=== PATIENT | female | born 2000 | race Caucasian/White ===

== ENCOUNTER 2020-02-02 08:54 | Day surgery (SDC) | payer BC ==
[2020-01-29 15:57] VITALS: BMI 23.9
[2020-02-02 10:07] VITALS: PULSE 78
[2020-02-02 10:39] VITALS: BP 96/76; TEMP 98.5
--- NOTE | 2020-02-06 16:08 | PATH ---
Surgical Pathology Report Patient Name: OTONIEL GUARDADO [facility]. Rec. #: [id number] /Age/Gender: 2000 (Age: 20) / F Account: [id number] Location: [facility] Taken: 02/02/2020 Received: 02/02/2020 Reported: 02/06/2020 Physicians: Fredrick Smith M.D. Specimen(s) Received A: DUODENUM B: GASTRIC ANTRUM C: GASTRIC BODY D: DISTAL ESOPHAGUS Clinical History Abdominal pain Postoperative diagnosis: duodenitis, gastritis, GERD Final Diagnosis A. DUODENUM, BIOPSY: DUODENAL MUCOSA WITHOUT SIGNIFICANT PATHOLOGIC FINDINGS. B. GASTRIC ANTRUM, BIOPSY: GASTRIC ANTRAL MUCOSA WITH SEVERE CHRONIC ACTIVE GASTRITIS. IMMUNOHISTOCHEMICAL STAIN FOR H. PYLORI IS POSITIVE (FEW). C. GASTRIC BODY, BIOPSY: GASTRIC BODY MUCOSA WITH SEVERE CHRONIC ACTIVE GASTRITIS. IMMUNOHISTOCHEMICAL STAIN FOR H. PYLORI IS POSITIVE (FEW). D. DISTAL ESOPHAGUS, BIOPSY: SQUAMOUS MUCOSA WITH CHANGES OF MILD REFLUX TYPE ESOPHAGITIS. Positive and negative controls (internal if applicable) show appropriate results. Electronically Signed Ciara Orozco M.D. Gross Description A. Received in formalin, labeled "duodenum" is a maxwell, irregular portion of soft tissue measuring 0.2 cm. in greatest dimension. The specimen is submitted in toto in one cassette. B. Received in formalin, labeled "biopsy gastric antrum" are 2 maxwell, irregular portions of soft tissue averaging 0.4 cm. in greatest dimension. The specimens are submitted in toto in one cassette. C. Received in formalin, labeled "biopsy gastric body" are 2 maxwell, irregular portions of soft tissue measuring 0.1 and 0.5 cm. in greatest dimension. The specimens are submitted in toto in one cassette. D. Received in formalin, labeled "biopsy distal esophagus" is a maxwell, irregular portion of soft tissue measuring 0.3 cm. in greatest dimension. The specimen is submitted in toto in one cassette. 02/05/2020 [facility]02/05/2020
== END 2020-02-02 10:39 | disposition home or self-care (01) ==
LOC: FASU 08:54
PROVIDERS: ATTEND Internal Medicine Gastroenterology
PROC: 0DB68ZX Excision of Stomach, Via Natural or Artificial Opening Endoscopic, Diagnostic (ICD-10-PCS; 2020-02-02)
PROC: 0DB38ZX Excision of Lower Esophagus, Via Natural or Artificial Opening Endoscopic, Diagnostic (ICD-10-PCS; 2020-02-02)
PROC: 0DB98ZX Excision of Duodenum, Via Natural or Artificial Opening Endoscopic, Diagnostic (ICD-10-PCS; principal; 2020-02-02 09:32)
DX: K29.50 Unspecified chronic gastritis without bleeding (principal); K21.0 Gastro-esophageal reflux disease with esophagitis; K29.80 Duodenitis without bleeding; B96.81 Helicobacter pylori [H. pylori] as the cause of diseases classified elsewhere; R68.81 Early satiety; R10.9 Unspecified abdominal pain
CPT/HCPCS: 84703; 88305-TC; 88342-TC